=== PATIENT | female | born 1965 | race African-American/Black ===

== ENCOUNTER 2016-12-24 16:44 | Emergency (ER) | payer BC ==
[~2016-12-24] VITALS: Ht 160 cm; Wt 115.0 kg
[2016-12-24 17:03] VITALS: BP 158/81; PULSE 82; PULSE 85; RESP 16; RESP 20; TEMP 98.6; O2SAT 99
[2016-12-24] MEDS ORDERED: TETANUS/DIPHTHERIA TOXOID ADULT 0.5 ML VIAL IM ONE (17:15)
[2016-12-24] MEDS ORDERED: LANTUS2P SQ (17:32)
[2016-12-24] MEDS ORDERED: METF1000 PO (17:32)
--- NOTE | 2016-12-24 17:46 | PD ---
HPI . Fall Chief Complaint: Fall Time Seen by Provider: 17:06 Travel History International Travel<30 days: No Contact w/Intl Traveler<30days: No Traveled to known affect area: No History of Present Illness HPI This patient presents to us via [facility] following a fall at a local restaurant. She states that she had gone to the bathroom and slipped and fell and landed on the back of her head. There was a questionable loss of consciousness. She comes in complaining with head, neck and diffuse back pain. Back pain is exacerbated by the backboard. She rates her pain 10/10. PFSH Past Medical History Asthma: Yes Depression: Yes Cardiovascular Problems: Yes (HTN ) Diabetes: Yes Patient Takes Glucophage: Yes Diminished Hearing: No Hypertension: Yes Musculoskeletal: Yes (CHRONIC BACK PAIN ) Respiratory: Yes (ASTHMA ) Tetanus Vaccination: < 5 Years Influenza Vaccination: Yes ?: Not Social History Alcohol Use: No Tobacco Use: No Substance Use: No Allergies-Medications (Allergen,Severity, Reaction): Coded Allergies: No Known Allergies (Unverified , 12/24/16) Reported Meds & Prescriptions Reported Meds & Active Scripts Active Reported Celexa (Citalopram Hydrobromide) 40 Mg Tab 40 Mg PO DAILY Lantus Inj (Insulin Glargine) 1,000 Unit/10 Ml Vial 35 Units SQ BID Metformin (Metformin HCl) 1,000 Mg Tab 1,000 Mg PO BIDPC With meals Review of Systems Except as stated in HPI: all other systems reviewed are Neg HENT: Positive: Headaches, Neck Pain Musculoskeletal: Positive: Pain Physical Exam Narrative GENERAL: She is lying on the stretcher in no apparent distress. SKIN: Warm and dry. HEAD: Atraumatic. Normocephalic. EYES: Pupils equal and round. Extraocular movements are intact. ENT: No nasal bleeding or discharge. Mucous membranes pink and moist. NECK: Trachea midline. C-spine is currently immobilized with a collar. CARDIOVASCULAR: Regular rate and rhythm. Heart sounds are normal. RESPIRATORY: No accessory muscle use. Lungs are clear with good air movement throughout. GASTROINTESTINAL: Abdomen soft, non-tender, nondistended. MUSCULOSKELETAL: No obvious deformities. No edema. NEUROLOGICAL: Awake and alert. No obvious cranial nerve deficits. Motor grossly within normal limits. Normal speech. PSYCHIATRIC: Appropriate mood and affect; insight and judgment normal. Data Data Last Documented VS Vital Signs Date Time Temp Pulse Resp B/P (MAP) Pulse Ox O2 Delivery O2 Flow Rate FiO2 12/24/16 19:10 73 18 155/81 (105) 99 Room Air 12/24/16 17:[address] Brain W/O Iv Contrast(Rout) (12/24/16 17:12) Ct Cerv Spine W/O Contrast (12/24/16 17:12) Ct Thor Spine W/O Contrast (12/24/16 17:12) Ct Lumb Spine W/O Contrast (12/24/16 17:12) Tetanus/Diphtheria Tox Adult (Tetanus/Di (12/24/16 17:15) Morphine Inj (Morphine Inj) (12/24/16 18:00) MDM Medical Decision Making Medical Screen Exam Complete: Yes Emergency Medical Condition: Yes Medical Record Reviewed: Yes (no old records in our system) Interpretation(s) EKG shows a sinus rhythm with no acute ischemic changes. Differential Diagnosis My differential diagnosis of head trauma includes but is not limited to scalp contusion, concussion, intracerebral hemorrhage. Differential diagnosis of back injury includes but is not limited to contusion, muscle strain, ligamentous strain, compression fracture, spinous process fracture Narrative Course This patient presents complaining with head, neck and back pain following a fall. She reportedly fell and landed on the back of her head. CTs of her head , neck, thoracic and lumbar spines are pending. Tetanus shot has been ordered. Her care is being turned over to Dr. Catalan pending the results of her CTs Coral Cuenca MD Dec 24, 2016 17:46
[2016-12-24] MEDS ORDERED: MORPHINE SULFATE 4 MG/ML INJ IV PUSH ONE (18:00)
[2016-12-24 18:14] VITALS: BP 152/82; PULSE 76; RESP 20; O2SAT 94
[2016-12-24] MEDS ORDERED: CELE40TA PO (18:27)
--- NOTE | 2016-12-24 18:43 | RADRPT ---
EXAM DATE/TIME: 12/24/2016 18:18 [facility] COMPARISON: No previous studies available for comparison. INDICATIONS : Head pain from fall. RADIATION DOSE: 56.35 CTDIvol (mGy) MEDICAL HISTORY : Hypertension. Diabetes mellitus type 2. Asthma. SURGICAL HISTORY : None. ENCOUNTER: Initial ACUITY: 1 day PAIN SCALE: 10/10 LOCATION: Bilateral cranial TECHNIQUE: Multiple contiguous axial images were obtained of the head. Using automated exposure control and adj ustment of the mA and/or kV according to patient size, radiation dose was kept as low as reasonably a chievable to obtain optimal diagnostic quality images. DICOM format image data is available electro nically for review and comparison. FINDINGS: CEREBRUM: The ventricles are normal for age. No evidence of midline shift, mass lesion, hemorrhage or acute in farction. No extra-axial fluid collections are seen. POSTERIOR FOSSA: The cerebellum and brainstem are intact. The 4th ventricle is midline. The cerebellopontine angle i s unremarkable. EXTRACRANIAL: The visualized portion of the orbits is intact. SKULL: The calvaria is intact. No evidence of skull fracture. CONCLUSION: Normal examination for a patient of this age. Faizan Potter MD on December 24, 2016 at 18:41 Board Certified Radiologist. This report was verified electronically.
--- NOTE | 2016-12-24 19:04 | RADRPT ---
EXAM DATE/TIME: 12/24/2016 18:20 [facility] COMPARISON: No previous studies available for comparison. INDICATIONS : Neck pain from fall. RADIATION DOSE: 42.11 CTDIvol (mGy) MEDICAL HISTORY : Hypertension. Diabetes mellitus type 2. Asthma. SURGICAL HISTORY : None. ENCOUNTER: Initial ACUITY: 1 day PAIN SCALE: 10/10 LOCATION: Bilateral neck region. TECHNIQUE: Volumetric scanning of the cervical spine was performed. Multiplanar reconstructions in the sagittal, coronal and oblique axial planes were performed. Using automated exposure control and adjustment o f the mA and/or kV according to patient size, radiation dose was kept as low as reasonably achievable to obtain optimal diagnostic quality images. DICOM format image data is available electronically f or review and comparison. FINDINGS: VERTEBRAE: Normal vertebral body height. There are degenerative changes involving the mid to lower cervical spin e at C4-5 and C5-6 with anterior osteophytes. No acute bony fracture is demonstrated. ALIGNMENT: No evidence of subluxation. C2-C3: The bony spinal canal is normal in size. No evidence of disc bulge or herniation. The neural forami na are bilaterally patent. C3-C4: Central bulging with small disc osteophyte complex. The neural foramina are patent bilaterally. C4-C5: The bony spinal canal is normal in size. No evidence of disc bulge or herniation. The neural forami na are bilaterally patent. C5-C6: Mild broad-based bulging. Mild narrowing of the neural foramina. The right neural foramen is patent. C6-C7: The bony spinal canal is normal in size. No evidence of disc bulge or herniation. The neural forami na are bilaterally patent. C7-T1: The bony spinal canal is normal in size. No evidence of disc bulge or herniation. The neural forami na are bilaterally patent. CONCLUSION: 1. No acute bony fracture. 2. Primary bony degenerative changes involving the mid to lower cervical spine at C4-5 and C5-6. 3. Central bulging with small disc osteophyte complex at C3-4. 4. Mild broad-based bulging C5-6. Faizan Potter MD on December 24, 2016 at 19:00 Board Certified Radiologist. This report was verified electronically.
[2016-12-24 19:10] VITALS: BP 155/81; PULSE 73; RESP 18; O2SAT 99
--- NOTE | 2016-12-24 19:12 | PD ---
Physical Exam Narrative Received sign out from previous team to follow up on CT scans. 51yo F with DM here s/p mechanical fall in the restaurant bathroom. She states she hit her head with +LOC now with neck pain, back pain. Pt given morphine which helped with the pain. No focal neurologic deficits on exam. CT cspine showed no acute bony fracture. Degenerative changes. CT brain negative. CT LS showed no acute fracture. CT TS showed no acute bony fracture. Pt given morphine with some improvement of pain. Pt also given valium for musculoskeletal pain. Return precautions given. Data Data Last Documented VS Vital Signs Date Time Temp Pulse Resp B/P (MAP) Pulse Ox O2 Delivery O2 Flow Rate FiO2 12/24/16 19:10 73 18 155/81 (105) 99 Room Air 12/24/16 17:[address] Brain W/O Iv Contrast(Rout) (12/24/16 17:12) Ct Cerv Spine W/O Contrast (12/24/16 17:12) Ct Thor Spine W/O Contrast (12/24/16 17:12) Ct Lumb Spine W/O Contrast (12/24/16 17:12) Tetanus/Diphtheria Tox Adult (Tetanus/Di (12/24/16 17:15) Morphine Inj (Morphine Inj) (12/24/16 18:00) Diazepam (Valium) (12/24/16 20:00) Electrocardiogram (12/24/16 17:05) MDM Supervised Visit with HAIM: No Diagnosis Primary Impression: Fall Qualified Codes: W19.XXXA - Unspecified fall, initial encounter Patient Instructions: General Instructions Departure Forms: Tests/Procedures Additional Instruction: Please follow up with your primary care physician in 3-7 days. Return to the ED if symptoms worsen. Med/Other Pt SpecificInfo: Prescription(s) given Scripts Acetaminophen (Tylenol) 325 Mg Tab 650 MG PO Q6H Y for PAIN SCALE 1 TO 4, #20 TAB 0 Refills Prov: Huyen Catalan DO 12/24/16 Disposition: 01 DISCHARGE HOME Condition: Stable Huyen Catalan Dec 24, 2016 19:12
--- NOTE | 2016-12-24 19:20 | RADRPT ---
EXAM DATE/TIME: 12/24/2016 18:24 [facility] COMPARISON: No previous studies available for comparison. INDICATIONS : Mid back pain from fall. RADIATION DOSE: 31.32 CTDIvol (mGy) ; Combined studies - Thoracic Spine/Lumbar Spine MEDICAL HISTORY : Hypertension. Diabetes mellitus type 2. Asthma. SURGICAL HISTORY : None. ENCOUNTER: Initial ACUITY: 1 day PAIN SCALE: 10/10 LOCATION: Bilateral mid back. TECHNIQUE: Volumetric scanning of the thoracic spine was performed. Multiplanar reconstructions in the sagittal , coronal and oblique axial planes were performed. Using automated exposure control and adjustment o f the mA and/or kV according to patient size, radiation dose was kept as low as reasonably achievable to obtain optimal diagnostic quality images. DICOM format image data is available electronically f or review and comparison. FINDINGS: The vertebral bodies of the thoracic spine are in normal alignment without evidence of subluxation. Vertebral body height is maintained. No fractures are seen. There are primary degenerative changes t hroughout the thoracic spine. T1-T2: Normal. T2-T3: The thecal sac has a normal diameter. No evidence of disc bulge or protrusion. T3-T4: The thecal sac has a normal diameter. No evidence of disc bulge or protrusion. T4-T5: The thecal sac has a normal diameter. No evidence of disc bulge or protrusion. T5-T6: The thecal sac has a normal diameter. No evidence of disc bulge or protrusion. T6-T7: The thecal sac has a normal diameter. No evidence of disc bulge or protrusion. T7-T8: The thecal sac has a normal diameter. No evidence of disc bulge or protrusion. T8-T9: There is some facet arthritis in the right side producing a mild extradural defect on the posterior l ateral aspect of the spinal canal. There are degenerative changes at this level. T9-T10: The thecal sac has a normal diameter. No evidence of disc bulge or protrusion. T10-T11: THERE IS A PROMINENT FACET ARTHRITIS ON THE RIGHT SIDE PRODUCING AN EXTRA DURAL DEFECT ON THE RIGHT L ATERAL ASPECT OF THE SPINAL CANAL. THIS IS CAUSING NARROWING OF THE RIGHT NEURAL FORAMINA. THE LEFT N EURAL FORAMINA IS PATENT. T11-T12: The thecal sac has a normal diameter. No evidence of disc bulge or protrusion. T12-L1: The thecal sac has a normal diameter. No evidence of disc bulge or protrusion. CONCLUSION: 1. No acute bony fracture. 2. Primary degenerative changes are noted throughout the thoracic spine. 3. There is evidence of facet arthritis on the right side at T8-9 and T10-T11 Faizan Potter MD on December 24, 2016 at 19:13 Board Certified Radiologist. This report was verified electronically.
--- NOTE | 2016-12-24 19:24 | RADRPT ---
EXAM DATE/TIME: 12/24/2016 18:26 [facility] COMPARISON: No previous studies available for comparison. INDICATIONS : Low back pain from fall. RADIATION DOSE: 31.32 CTDIvol (mGy) ; Combined studies - Thoracic Spine/Lumbar Spine MEDICAL HISTORY : Diabetes mellitus type 2. Hypertension. Asthma. SURGICAL HISTORY : None. ENCOUNTER: Initial ACUITY: 1 day PAIN SCALE: 10/10 LOCATION: Bilateral low back TECHNIQUE: Volumetric scanning of the lumbar spine was performed. Multiplanar reconstructions in the sagittal, coronal and oblique axial planes were performed. Using automated exposure control and adjustment of the mA and/or kV according to patient size, radiation dose was kept as low as reasonably achievable t o obtain optimal diagnostic quality images. DICOM format image data is available electronically for review and comparison. FINDINGS: VERTEBRAE: Normal vertebral body height. Mild primary degenerative changes. No acute bony fracture. ALIGNMENT: No evidence of subluxation. T12-L1: The thecal sac has a normal diameter. No evidence of disc bulge or protrusion. The neural foramina are patent bilaterally. Bilateral facet arthritis. L1-L2: The thecal sac has a normal diameter. No evidence of disc bulge or protrusion. The neural foramina are patent bilaterally. Bilateral facet arthritis. L2-L3: The thecal sac has a normal diameter. No evidence of disc bulge or protrusion. The neural foramina are patent bilaterally. Bilateral facet arthritis. L3-L4: Broad-based bulging at L3-4. Mild narrowing of the neural foramina bilaterally. Bilateral facet arthr itis. L4-L5: Broad-based bulging with narrowing of the neural foramina bilaterally. Bilateral facet arthritis. L5-S1: The thecal sac has a normal diameter. No evidence of disc bulge or protrusion. Bilateral facet arthr itis with narrowing of the neuroforamina bilaterally. CONCLUSION: 1. No acute bony fracture. 2. Degenerative changes are noted throughout the lumbar spine. 3. Bilateral facet arthritis at multiple levels. 4. Broad-based bulging at L3-4 and L4-5. Faizan Potter MD on December 24, 2016 at 19:19 Board Certified Radiologist. This report was verified electronically.
[2016-12-24] MEDS ORDERED: DIAZEPAM 5 MG TAB PO ONE (20:00)
[2016-12-24] MEDS ORDERED: TYLE325T PO (20:09)
--- NOTE | 2016-12-25 16:42 | EKG ---
Date Performed: 12/24/2016 Time Performed: 17:05:53 PTAGE: 51 years EKG: Sinus rhythm LEFT ATRIAL ENLARGEMENT NONSPECIFIC T-WAVE ABNORMALITY ABNORMAL ECG INTERPRETATION BASED ON A DEFAUL T AGE OF 40 YEARS NO PREVIOUS TRACING DOCTOR: Lisa Frank Interpretating Date/Time 12/25/2016 16:39:01
== END 2016-12-24 20:25 | disposition home or self-care (01) ==
LOC: NEPC 16:44
DX: M54.2 Cervicalgia (principal); M54.9 Dorsalgia, unspecified; R51 Headache; R55 Syncope and collapse; R94.31 Abnormal electrocardiogram [ECG] [EKG]; I51.7 Cardiomegaly; E11.9 Type 2 diabetes mellitus without complications; I10 Essential (primary) hypertension; Z23 Encounter for immunization
CPT/HCPCS: 70450; 72125; 72128; 72131; 90471; 93005; 96374; 99285; J2270